=== PATIENT | male | born 1990 | race Caucasian/White ===

== ENCOUNTER 2020-11-11 02:09 | Emergency (ER) | payer OTHER, MEDICAID, SELFPAY ==
[2020-11-11] VITALS (9 sets, daily range): BP systolic 140–182; BP diastolic 98–123; PULSE 60–73; RESP 13–24; TEMP 37; O2SAT 97–100; BMI 24.4
--- NOTE | 2020-11-11 02:25 | ED_ITS ---
HPI - Chest Pain General Chief Complaint: Chest Pain Stated Complaint: anxiety panic attack Time Seen by Provider: 11/11/20 02:11 History of Present Illness HPI narrative: 30-year-old male smoker with no chronic medical problems presents with a friend and a chief complaint have some chest pressure across his chest and some tingling in his neck. He states it started about an hour ago. He denies any obvious provocation, palliation or radiation. He denies associated symptoms such as dizziness, weakness or lightheadedness. He is slightly nauseated but denies any vomiting. He has had no fever or chills and denies any injury. He states that he had been partying a bit tonight and probably had too much alcohol and then used cocaine about 1 hour prior to the onset of the symptoms. Related Data Allergies Allergy/AdvReac Type Severity Reaction Status Date / Time No Known Drug Allergies Allergy Verified 11/11/20 03:18 Review of Systems Review of Systems Narrative: GENERAL: Denies chills, fatigue, malaise, fever, sweats. HEENT: Denies sinus pain, ear pain, sore throat, difficulty swallowing, dizziness. RESPIRATORY: Denies dyspnea, cough, wheezing, hemoptysis, sputum. CARDIOVASCULAR: See HPI GASTROINTESTINAL: Denies nausea, vomiting, abdominal pain, diarrhea, constipation, melena. : Denies dysuria, frequency, incontinence, hematuria, urinary retention. MUSCULOSKELETAL: denies weakness, joint pain, or bony pain SKIN: Denies rash, skin lesions, or other NEUROLOGIC: Denies weakness, headache, numbness, change in speech, confusion, seizures, incoordination. PSYCHIATRIC: No concerning psychosocial issues. 12 point review of systems is negative except for those stated above Patient History Social History Smoking Status: Current every day smoker Exam Narrative Exam Narrative: GENERAL: [30] year old patient appears stated age. Well- developed patient, in mild distress. Anxious HEAD: Atraumatic. Normocephalic. EYES: Pupils equal round and reactive. Extraocular motions intact. No scleral icterus. No injection or drainage. ENT: Nose without bleeding, purulent drainage. Throat without erythema, tonsillar hypertrophy or exudate. Airway patent. NECK: Trachea midline. Non tender CARDIOVASCULAR: Regular rate and rhythm without murmurs, gallops, or rubs. RESPIRATORY: Clear to auscultation. Breath sounds equal bilaterally. No wheezes, rales, or rhonchi. GASTROINTESTINAL: Abdomen soft, non-tender, nondistended. EXTREMITIES: No edema or joint tenderness. BACK: Nontender without deformity or crepitance. No flank tenderness. NEURO: AOx3. SKIN: No rash or erythema of visible areas Initial Vital Signs Initial Vital Signs: Vital Signs Pulse Rate 67 11/11/20 02:29 Pulse Oximetry 100 11/11/20 02:29 Course Orders Ordered: ED Orders 11/11/20 02:25 Complete Blood Count AUTO DIFF Stat Comprehensive Metabolic Panel Stat Troponin & CK Cardiac Panel Stat 11/11/20 02:27 XR chest 1V Stat 11/11/20 03:24 Urine Drug Screen, Rapid Stat 11/11/20 03:34 EKG-12 Lead Stat Discontinued Medications Sodium Chloride (Normal Saline 0.9%) 1,000 mls @ 1,000 mls/hr IV BOLUS ONE Stop: 11/11/20 03:24 Last Infusion: 11/11/20 04:03 Dose: 0 mls/hr Documented by: Admin: 11/11/20 03:11 Dose: 1,000 mls/hr Documented by: ARNULFO Lorazepam (Lorazepam 2 Mg/Ml Inj) 0.5 mg IV NOW ONE Stop: 11/11/20 03:16 Last Admin: 11/11/20 04:04 Dose: Not Given Documented by: ARNULFO Reevaluation(s) Reevaluation #1: Patient having no pain once blood pressure improves. No longer feeling anxious, asymptomatic Vital Signs Vital signs: Vital Signs - 8 hr 11/11/20 02:29 11/11/20 02:30 11/11/20 02:31 Temperature Pulse Rate 67 66 70 Respiratory Rate 14 Blood Pressure 158/101 H Pulse Oximetry 100 100 100 11/11/20 02:39 11/11/20 03:00 11/11/20 03:25 Temperature 98.6 F Pulse Rate 73 66 66 Respiratory Rate 24 13 20 Blood Pressure 182/123 H 140/98 H 153/101 H Pulse Oximetry 99 98 97 11/11/20 03:29 11/11/20 03:30 11/11/20 04:00 Temperature Pulse Rate 64 60 61 Respiratory Rate 24 17 19 Blood Pressure 158/102 H 158/102 H Pulse Oximetry 97 98 100 MDM - Chest Pain Lab Data Result diagrams: 11/11/20 02:25 11/11/20 02:25 Labs: Lab Results 11/11/20 11/11/20 11/11/20 Range/Units 02:25 02:25 02:25 WBC 5.9 (4.5-11.0) X10^3/uL RBC 4.87 (4.5-5.9) X10^6/uL Hgb 15.1 (13.5-17.5) g/dL Hct 44.4 (41-53) % MCV 91.1 (80-100) fL MCH 31.0 (26-34) PG MCHC 34.1 (30-36) % RDW 12.5 (11.6-14.8) % Plt Count 193 (150-400) X10^3/uL Neut % (Auto) 61.4 (50-75) % Lymph % (Auto) 25.6 (25-40) % [place] % (Auto) 9.9 (3-14) % Eos % (Auto) 2.2 (2-4) % Baso % (Auto) 0.9 (0-2) % Neut # (Auto) 3600 (5864-2699) /uL Lymph # (Auto) 1500 (0061-0653) /uL [place] # (Auto) 600 (0-900) /uL Eos # (Auto) 100 (0-450) /uL Baso # (Auto) 100 (0-100) /uL Sodium 134 L (137-145) mmol/L Potassium 3.7 (3.4-5.1) mmol/L Chloride 100 (98-107) mmol/L Carbon Dioxide 28 (22-32) mmol/L BUN 9 (9-20) mg/dL Creatinine 0.85 (0.66-1.25) mg/dL Estimated GFR > 60.0 (>60) mL/min BUN/Creatinine Ratio 10.6 (6-22) Glucose 94 (70-100) mg/dL Calcium 9.3 (8.4-10.2) mg/dL Total Bilirubin 1.0 (0.2-1.3) mg/dL AST 32 (17-59) IU/L ALT 34 (<50) IU/L Alkaline Phosphatase 87 (38-126) U/L Total Creatine Kinase 90 (55-170) U/L CK-MB (CK-2) TNP CK-MB (CK-2) Rel Index TNP Troponin I < 0.012 (0.01-0.034) ng/mL Total Protein 7.1 (6.3-8.2) g/dL Albumin 4.3 (3.5-5.0) g/dL Globulin 2.8 (1.7-4.1) g/dL Albumin/Globulin Ratio 1.5 (1.0-2.8) U Opiates 300ng/mL cut (Negative) Ur Oxycodone Screen (Negative) Urine Methadone Screen (Negative) Ur Barbiturates Screen (Negative) U Tricyclic Antidepress (Negative) Ur Phencyclidine Scrn (Negative) Ur Amphetamines Screen (Negative) U Methamphetamines Scrn (Negative) Ur MDMA Scrn (Ecstasy) (Negative) U Benzodiazepines Scrn (Negative) Urine Cocaine Screen (Negative) U Marijuana (THC) Screen (Negative) 11/11/20 Range/Units 03:24 WBC (4.5-11.0) X10^3/uL RBC (4.5-5.9) X10^6/uL Hgb (13.5-17.5) g/dL Hct (41-53) % MCV (80-100) fL MCH (26-34) PG MCHC (30-36) % RDW (11.6-14.8) % Plt Count (150-400) X10^3/uL Neut % (Auto) (50-75) % Lymph % (Auto) (25-40) % [place] % (Auto) (3-14) % Eos % (Auto) (2-4) % Baso % (Auto) (0-2) % Neut # (Auto) (1518-5481) /uL Lymph # (Auto) (0784-4653) /uL [place] # (Auto) (0-900) /uL Eos # (Auto) (0-450) /uL Baso # (Auto) (0-100) /uL Sodium (137-145) mmol/L Potassium (3.4-5.1) mmol/L Chloride (98-107) mmol/L Carbon Dioxide (22-32) mmol/L BUN (9-20) mg/dL Creatinine (0.66-1.25) mg/dL Estimated GFR (>60) mL/min BUN/Creatinine Ratio (6-22) Glucose (70-100) mg/dL Calcium (8.4-10.2) mg/dL Total Bilirubin (0.2-1.3) mg/dL AST (17-59) IU/L ALT (<50) IU/L Alkaline Phosphatase (38-126) U/L Total Creatine Kinase (55-170) U/L CK-MB (CK-2) CK-MB (CK-2) Rel Index Troponin I (0.01-0.034) ng/mL Total Protein (6.3-8.2) g/dL Albumin (3.5-5.0) g/dL Globulin (1.7-4.1) g/dL Albumin/Globulin Ratio (1.0-2.8) U Opiates 300ng/mL cut Negative (Negative) Ur Oxycodone Screen Negative (Negative) Urine Methadone Screen Negative (Negative) Ur Barbiturates Screen Negative (Negative) U Tricyclic Antidepress Negative (Negative) Ur Phencyclidine Scrn Negative (Negative) Ur Amphetamines Screen Negative (Negative) U Methamphetamines Scrn Negative (Negative) Ur MDMA Scrn (Ecstasy) Negative (Negative) U Benzodiazepines Scrn Negative (Negative) Urine Cocaine Screen Positive H (Negative) U Marijuana (THC) Screen Positive H (Negative) Urine Dip Bedside Urine Glucose Negative Bedside Urine Bilirubin - Negative Bedside Urine Ketone - Negative Urine Specific [place] 1.010 Bedside Urine Occult Blood - Negative Bedside Urine pH 6 Bedside Urine Protein - Negative Bedside Urine Urobilinogen - Negative Bedside Urine Nitrite - Negative Bedside Urine Leukocytes - Negative Esterase ECG Data Interpretation: EKG is normal sinus rhythm rate [73] and free of any signs of ischemia or ectopy. No ST segmental elevation or depression. No T wave inversions MDM Narrative Medical decision making narrative: Multiple causes of chest pain considered including VA, PE, pneumothorax, pneumonia, aortic dissection, and pleurisy. Patient reports no radiation, no diaphoresis, no provocation with exertion, and no vomiting Patient's symptoms improved over duration of stay with above-stated therapies. Findings and discharge diagnosis discussed with patient/family followed by verbalization of understanding Return precautions discussed with patient/family whom verbalize understanding. Discharge Plan Departure Patient Disposition: Home Clinical Impression: Atypical chest pain Instructions: DI for Atypical Chest Pain Activity Restrictions/Additional Instructions: *You have been diagnosed with [atypical chest pain, elevated blood pressure. Physical exam, history, labs and EKG are all very reassuring] *What to do: *Please continue to take your regular medications as directed. [ ] New medication prescriptions sent to your pharmacy: [ ] [ ] New medication written as a paper prescription [x ] No new medications given *Please follow up with your primary care provider in 2-3 days, call for an appointment. Let them know you were seen in the Emergency Department and that we ask that you be seen in follow up. We will electronically transmit a record of today's note if your PCP is in our system *If you do not have a primary care provider please contact the [facility] Resource line at [phone]. They will ask some questions about your medical history and help get you set up with a doctor in the community. *Return to Emergency Department if you should have any new, worsening or concerning symptoms, such as [fever greater than 101 F, shaking chills, worsening pain, persistent vomiting or other bothersome symptoms] Referrals: [facility] [Outside]
--- NOTE | 2020-11-11 02:27 | DI.RAD.S_ITS ---
PROCEDURE: XR CHEST 1V INDICATIONS: chest pain TECHNIQUE: One view of the chest was acquired. COMPARISON: None. FINDINGS: Surgical changes and devices: None. Lungs and pleura: Lungs are clear. No pleural effusions or pneumothorax. Mediastinum: Mediastinal contours appear normal. Heart size is normal. Bones and chest wall: No suspicious bony lesions. Overlying soft tissues appear unremarkable. IMPRESSION: No acute cardiopulmonary disease process. Dictated by: Sara Cortez MD, PhD on 11/11/2020 at 8:53 Approved by: Sara Cortez MD, PhD on 11/11/2020 at 8:54
[2020-11-11 02:41] LABS: Add Manual Diff / Slide Review NO; Basophils Absolute Auto 100 /uL (0-100); Basophils Percent Auto 0.9 % (0-2); Eosinophils Absolute Auto 100 /uL (0-450); Eosinophils Percent Auto 2.2 % (2-4); Hematocrit 44.4 % (41-53); Hemoglobin 15.1 g/dL (13.5-17.5); Lymphocytes Absolute Auto 1500 /uL (1100-4500); Lymphocytes Percent Auto 25.6 % (25-40); Mean Corpuscular HGB Conc 34.1 % (30-36); Mean Corpuscular Volume 91.1 fL (80-100); Monocytes Absolute Auto 600 /uL (0-900); Monocytes Percent Auto 9.9 % (3-14); Neutrophils Absolute Auto 3600 /uL (1500-7000); Neutrophils Percent Auto 61.4 % (50-75); Platelet Count 193 X10^3/uL (150-400); Red Blood Cell Count 4.87 X10^6/uL (4.5-5.9); Red Cell Distribution Width 12.5 % (11.6-14.8); White Blood Cell Count 5.9 X10^3/uL (4.5-11.0)
[2020-11-11 02:50] LABS: Alanine Aminotransferase 34 IU/L (<50); Albumin 4.3 g/dL (3.5-5.0); Albumin Globulin Ratio 1.5 (1.0-2.8); Alkaline Phosphatase 87 U/L (38-126); Aspartate Aminotransferase 32 IU/L (17-59); BUN Creatinine Ratio 10.6 (6-22); Blood Urea Nitrogen 9 mg/dL (9-20); Calcium 9.3 mg/dL (8.4-10.2); Carbon Dioxide 28 mmol/L (22-32); Chloride 100 mmol/L (98-107); Creatine Kinase 90 U/L (55-170); Estimated Glomerular Filt Rate > 60.0 mL/min (>60); Globulin 2.8 g/dL (1.7-4.1); Glucose 94 mg/dL (70-100); HEMOLYSIS < 15 (0-50); Potassium 3.7 mmol/L (3.4-5.1); Sodium 134 mmol/L (137-145); Total Protein 7.1 g/dL (6.3-8.2)
[2020-11-11 03:02] LABS: Troponin I < 0.012 ng/mL (0.01-0.034)
[2020-11-11] MEDS: SODIUM CHLORIDE 0.9% 1,000 ML 1000 ML IV (03:11)
[2020-11-11 03:46] LABS: UR Morphine/Opiate cutoff 300 Negative (Negative); Ur Creatinine 10 (Normal); Ur Specific Gravity 1.015 (Normal); Urine Amphetamines Negative (Negative); Urine Barbiturates Negative (Negative); Urine Benzodiazepines Negative (Negative); Urine Cocaine Positive (Negative); Urine MDMA Negative (Negative); Urine Methadone Negative (Negative); Urine Methamphetamines Negative (Negative); Urine Oxycodone Negative (Negative); Urine Phencyclidine Negative (Negative); Urine Tetrahydrocannabinol Positive (Negative); Urine Tricyclic Antidepressant Negative (Negative); Urine pH 4 (Normal)
== END 2020-11-11 04:11 | disposition home or self-care (01) ==
PROVIDERS: Emergency Provider Emergency Medicine
DX: R07.89 Other chest pain (principal)
CPT/HCPCS: 36415; 71045; 80053; 80305; 81003; 82550; 84484; 85025; 93005; 93010; 96361; 96374; 99284

== ENCOUNTER 2020-11-13 13:53 | Emergency (ER) | payer OTHER, MEDICAID, SELFPAY ==
[2020-11-13] VITALS (11 sets, daily range): BP systolic 141–175; BP diastolic 86–102; PULSE 55–67; RESP 10–20; TEMP 36.6; O2SAT 98–100
--- NOTE | 2020-11-13 14:00 | DI.RAD.S_ITS ---
PROCEDURE: XR CHEST 1V INDICATIONS: chest pain TECHNIQUE: One view of the chest was acquired. COMPARISON: [facility], CR, XR CHEST 1V, 11/11/2020, 2:29. FINDINGS: Surgical changes and devices: None. Lungs and pleura: Lungs are clear. No pleural effusions or pneumothorax. Mediastinum: Mediastinal contours appear normal. Heart size is normal. Bones and chest wall: No suspicious bony lesions. Overlying soft tissues appear unremarkable. IMPRESSION: No acute cardiopulmonary disease process. Dictated by: Sara Cortez MD, PhD on 11/13/2020 at 14:26 Approved by: Sara Cortez MD, PhD on 11/13/2020 at 14:27
--- NOTE | 2020-11-13 14:33 | ED.CHESTPAIN ---
HPI - Chest Pain <Aroldo Ziegler PA-C - Last Filed: 11/13/20 19:10> General Chief Complaint: Chest Pain Stated Complaint: CHEST PAIN, HIGH BLOOD PRESSURE Time Seen by Provider: 11/13/20 14:20 Source: patient Mode of arrival: Ambulatory History of Present Illness HPI narrative: Tyrone presents today with chief complaint left-sided chest pain in addition to lightheadedness and blurred vision that occurred earlier today after he was eating lunch. He reports that he had a similar episode 2 days ago and was seen in the emergency department. At that time a normal evaluation was done and he was discharged. He has a follow-up appointment with his primary care provider for 1 week from today. Prior to this week, he has not experienced symptoms similar to this. He denies any significant worsening symptoms with exertion, shortness of breath, cough, fever, sore throat, recent illness or any other acute concerns or complaints at this time. Related Data Allergies Allergy/AdvReac Type Severity Reaction Status Date / Time No Known Drug Allergies Allergy Verified 11/11/20 03:18 Review of Systems <Aroldo Ziegler PA-C - Last Filed: 11/13/20 19:10> Review of Systems Narrative: As per HPI Patient History <Aroldo Ziegler PA-C - Last Filed: 11/13/20 19:10> Social History Smoking Status: Current every day smoker Smoking Status: Current every day smoker alcohol intake frequency: 0-2 drinks per day Substance Use Type: does not use Exam <Aroldo Ziegler PA-C - Last Filed: 11/13/20 19:10> Narrative Exam Narrative: Exam Narrative: Const General: cooperative, healthy appearing, comfortable, no acute distress, well developed and well groomed Nutritional Appearance: average body habitus Orientation: alert and oriented x3 HENMT Head: normal to inspection and atraumatic Ears: hearing grossly normal bilaterally Nose: external nose normal and nares normal Face and sinus: normal facial exam Neck Neck: normal visual inspection and supple Resp Effort & Inspection: normal respiratory effort, able to speak in complete sentences, no audible wheezes, not labored, no nasal flaring and no respiratory distress, clear to auscultation bilaterally Cardiac Regular rate and rhythm, no discernible murmurs, rubs or gallops. Chest No chest wall tenderness with palpation. Normal expansion GI Nondistended, nontender to palpation, normal bowel sounds, no masses noted. Neuro General: alert, oriented x3, gait normal, tone normal and moves all extremities Cognition: normal cognition Speech: speech normal Gait: normal gait Psych Appearance: grossly normal and well kempt Mental Status: mental status grossly normal Speech and Movement: speech and movement normal Mood: congruent mood Affect: normal affect Initial Vital Signs Initial Vital Signs: Vital Signs Temperature 97.9 F 11/13/20 13:56 Pulse Rate 66 11/13/20 13:56 Respiratory Rate 20 11/13/20 13:56 Blood Pressure 175/102 H 11/13/20 13:56 Pulse Oximetry 100 11/13/20 13:56 <James Navarro DO - Last Filed: 11/17/20 07:10> Initial Vital Signs Initial Vital Signs: Vital Signs Temperature 97.9 F 11/13/20 13:56 Pulse Rate 66 11/13/20 13:56 Respiratory Rate 20 11/13/20 13:56 Blood Pressure 175/102 H 11/13/20 13:56 Pulse Oximetry 100 11/13/20 13:56 Scores <Aroldo Ziegler PA-C - Last Filed: 11/13/20 19:10> HEART Score Heart Score history: Slightly Suspicious Heart Score EKG: Non-Specific repolarization disturbance Heart Score Age: < 45 years old Heart Score risk factors: No known risk factors Heart Score troponin: < or = to normal limit Heart Score Total: 1 PERC Score Age greater than or equal to 50 years: No Heart rate greater than or equal to 100 bpm: No Room Air O2 Sat less than 95%: No Unilateral leg swelling: No Recent trauma or surgery: No Hemoptysis: No Prior PE or DVT: No Hormone Use: No Total PERC Score: 0 <DO Isaac Galan Last Filed: 11/17/20 07:10> HEART Score Heart Score Total: 1 PERC Score Total PERC Score: 0 Course <SHELBI Hopper Last Filed: 11/13/20 19:10> Orders Ordered: Discontinued Medications Aspirin (Aspirin 81 Mg Chew Tab) 324 mg PO NOW ONE Stop: 11/13/20 14:37 Last Admin: 11/13/20 14:51 Dose: 324 mg Documented by: SIMBA Vital Signs Vital signs: Vital Signs - 8 hr 11/13/20 13:56 11/13/20 14:09 11/13/20 14:30 Temperature 97.9 F Pulse Rate 66 60 67 Respiratory Rate 20 12 14 Blood Pressure 175/102 H 161/90 H Pulse Oximetry 100 100 98 11/13/20 15:00 11/13/20 15:30 11/13/20 16:00 Temperature Pulse Rate 66 63 55 L Respiratory Rate 16 14 17 Blood Pressure 148/86 H 147/91 H 141/92 H Pulse Oximetry 99 98 98 11/13/20 16:20 11/13/20 16:30 11/13/20 17:00 Temperature Pulse Rate 55 L 57 L 60 Respiratory Rate 14 10 L 19 Blood Pressure 150/100 H 141/94 H 160/100 H Pulse Oximetry 100 98 99 11/13/20 17:30 11/13/20 18:00 Temperature Pulse Rate 57 L 58 L Respiratory Rate 18 16 Blood Pressure 157/102 H 149/94 H Pulse Oximetry 99 98 <James Navarro DO - Last Filed: 11/17/20 07:10> Orders Ordered: Discontinued Medications Aspirin (Aspirin 81 Mg Chew Tab) 324 mg PO NOW ONE Stop: 11/13/20 14:37 Last Admin: 11/13/20 14:51 Dose: 324 mg Documented by: SIMBA Vital Signs Vital signs: Vital Signs - 8 hr 11/13/20 13:56 11/13/20 14:09 11/13/20 14:30 Temperature 97.9 F Pulse Rate 66 60 67 Respiratory Rate 20 12 14 Blood Pressure 175/102 H 161/90 H Pulse Oximetry 100 100 98 11/13/20 15:00 11/13/20 15:30 11/13/20 16:00 Temperature Pulse Rate 66 63 55 L Respiratory Rate 16 14 17 Blood Pressure 148/86 H 147/91 H 141/92 H Pulse Oximetry 99 98 98 11/13/20 16:20 11/13/20 16:30 11/13/20 17:00 Temperature Pulse Rate 55 L 57 L 60 Respiratory Rate 14 10 L 19 Blood Pressure 150/100 H 141/94 H 160/100 H Pulse Oximetry 100 98 99 11/13/20 17:30 11/13/20 18:00 Temperature Pulse Rate 57 L 58 L Respiratory Rate 18 16 Blood Pressure 157/102 H 149/94 H Pulse Oximetry 99 98 MDM - Chest Pain <Aroldo Ziegler PA-C - Last Filed: 11/13/20 19:10> Lab Data Result diagrams: 11/13/20 14:40 11/13/20 14:40 Labs: Lab Results 11/13/20 11/13/20 11/13/20 Range/Units 14:40 14:40 17:10 WBC 4.9 (4.5-11.0) X10^3/uL RBC 5.15 (4.5-5.9) X10^6/uL Hgb 16.2 (13.5-17.5) g/dL Hct 46.9 (41-53) % MCV 91.0 (80-100) fL MCH 31.5 (26-34) PG MCHC 34.6 (30-36) % RDW 12.9 (11.6-14.8) % Plt Count 180 (150-400) X10^3/uL Neut % (Auto) 54.7 (50-75) % Lymph % (Auto) 28.9 (25-40) % [place] % (Auto) 11.7 (3-14) % Eos % (Auto) 3.8 (2-4) % Baso % (Auto) 0.9 (0-2) % Neut # (Auto) 2700 (1886-7416) /uL Lymph # (Auto) 1400 (8157-7115) /uL [place] # (Auto) 600 (0-900) /uL Eos # (Auto) 200 (0-450) /uL Baso # (Auto) 0 (0-100) /uL Sodium 138 (137-145) mmol/L Potassium 4.2 (3.4-5.1) mmol/L Chloride 105 (98-107) mmol/L Carbon Dioxide 27 (22-32) mmol/L BUN 9 (9-20) mg/dL Creatinine 0.79 (0.66-1.25) mg/dL Estimated GFR > 60.0 (>60) mL/min BUN/Creatinine Ratio 11.4 (6-22) Glucose 92 (70-100) mg/dL Calcium 9.6 (8.4-10.2) mg/dL Total Bilirubin 0.7 (0.2-1.3) mg/dL AST 38 (17-59) IU/L ALT 43 (<50) IU/L Alkaline Phosphatase 70 (38-126) U/L Total Creatine Kinase 48 L (55-170) U/L CK-MB (CK-2) TNP CK-MB (CK-2) Rel Index TNP Troponin I < 0.012 < 0.012 (0.01-0.034) ng/mL Total Protein 7.1 (6.3-8.2) g/dL Albumin 4.4 (3.5-5.0) g/dL Globulin 2.7 (1.7-4.1) g/dL Albumin/Globulin Ratio 1.6 (1.0-2.8) Lipase 162 (23-300) U/L MDM Narrative Medical decision making narrative: Patient is well-appearing at this time. He is otherwise healthy and does not have any significant contributory past medical problems. Heart score is 1 given his nonspecific T-wave abnormalities in the inferior leads. PERC was applied and he sored 0 suggesting low likelihood of PE. He has a follow-up appointment with his primary care provider this next week. ER return precautions were discussed with the patient. Patient verbalizes understanding and agrees to plan and has no further concerns at this time. Thank you A [id number] system was used with the dictation of this note. Please disregard any spelling or grammatical errors. <James Navarro, DO - Last Filed: 11/17/20 07:10> Lab Data Labs: Lab Results 11/13/20 11/13/20 11/13/20 Range/Units 14:40 14:40 17:10 WBC 4.9 (4.5-11.0) X10^3/uL RBC 5.15 (4.5-5.9) X10^6/uL Hgb 16.2 (13.5-17.5) g/dL Hct 46.9 (41-53) % MCV 91.0 (80-100) fL MCH 31.5 (26-34) PG MCHC 34.6 (30-36) % RDW 12.9 (11.6-14.8) % Plt Count 180 (150-400) X10^3/uL Neut % (Auto) 54.7 (50-75) % Lymph % (Auto) 28.9 (25-40) % [place] % (Auto) 11.7 (3-14) % Eos % (Auto) 3.8 (2-4) % Baso % (Auto) 0.9 (0-2) % Neut # (Auto) 2700 (7681-1215) /uL Lymph # (Auto) 1400 (4097-0624) /uL [place] # (Auto) 600 (0-900) /uL Eos # (Auto) 200 (0-450) /uL Baso # (Auto) 0 (0-100) /uL Sodium 138 (137-145) mmol/L Potassium 4.2 (3.4-5.1) mmol/L Chloride 105 (98-107) mmol/L Carbon Dioxide 27 (22-32) mmol/L BUN 9 (9-20) mg/dL Creatinine 0.79 (0.66-1.25) mg/dL Estimated GFR > 60.0 (>60) mL/min BUN/Creatinine Ratio 11.4 (6-22) Glucose 92 (70-100) mg/dL Calcium 9.6 (8.4-10.2) mg/dL Total Bilirubin 0.7 (0.2-1.3) mg/dL AST 38 (17-59) IU/L ALT 43 (<50) IU/L Alkaline Phosphatase 70 (38-126) U/L Total Creatine Kinase 48 L (55-170) U/L CK-MB (CK-2) TNP CK-MB (CK-2) Rel Index TNP Troponin I < 0.012 < 0.012 (0.01-0.034) ng/mL Total Protein 7.1 (6.3-8.2) g/dL Albumin 4.4 (3.5-5.0) g/dL Globulin 2.7 (1.7-4.1) g/dL Albumin/Globulin Ratio 1.6 (1.0-2.8) Lipase 162 (23-300) U/L Discharge Plan Departure Patient Disposition: Home Clinical Impression: Chest pain Qualifiers: Chest pain type: unspecified Qualified Code(s): R07.9 - Chest pain, unspecified Instructions: DI for Chest Pain Activity Restrictions/Additional Instructions: It was very nice to meet you this afternoon. Your evaluation today has been reassuring. However, chest pain is a serious concern. Please follow-up with your primary care provider at your next appointment on for further outpatient evaluation. You experience significant worsening symptoms, difficulty breathing, fever, cough, rash or have any additional concerns or complaints do not hesitate to return for re-evaluation. Thank you Aroldo Ziegler PA-C <James Navarro, DO - Last Filed: 11/17/20 07:10> [facility] ED Attending Cosignature Attestation: Dr Navarro Co-Sign Statement: I was available for consultation during this patient's emergency department visit. This chart is signed by myself for administrative purposes only. I did not have direct contact with this patient during this visit. They were seen independently by the APC.
[2020-11-13 14:44] LABS: Add Manual Diff / Slide Review NO; Basophils Absolute Auto 0 /uL (0-100); Basophils Percent Auto 0.9 % (0-2); Eosinophils Absolute Auto 200 /uL (0-450); Eosinophils Percent Auto 3.8 % (2-4); Hematocrit 46.9 % (41-53); Hemoglobin 16.2 g/dL (13.5-17.5); Lymphocytes Absolute Auto 1400 /uL (1100-4500); Lymphocytes Percent Auto 28.9 % (25-40); Mean Corpuscular HGB Conc 34.6 % (30-36); Mean Corpuscular Hemoglobin 31.5 PG (26-34); Monocytes Absolute Auto 600 /uL (0-900); Monocytes Percent Auto 11.7 % (3-14); Neutrophils Absolute Auto 2700 /uL (1500-7000); Neutrophils Percent Auto 54.7 % (50-75); Platelet Count 180 X10^3/uL (150-400); Red Blood Cell Count 5.15 X10^6/uL (4.5-5.9); Red Cell Distribution Width 12.9 % (11.6-14.8); White Blood Cell Count 4.9 X10^3/uL (4.5-11.0)
[2020-11-13] MEDS: ASPIRIN 81 MG CHEW TAB 324 MG PO (14:51)
[2020-11-13 15:09] LABS: Alanine Aminotransferase 43 IU/L (<50); Albumin 4.4 g/dL (3.5-5.0); Albumin Globulin Ratio 1.6 (1.0-2.8); Alkaline Phosphatase 70 U/L (38-126); Aspartate Aminotransferase 38 IU/L (17-59); BUN Creatinine Ratio 11.4 (6-22); Bilirubin Total 0.7 mg/dL (0.2-1.3); Blood Urea Nitrogen 9 mg/dL (9-20); Calcium 9.6 mg/dL (8.4-10.2); Carbon Dioxide 27 mmol/L (22-32); Chloride 105 mmol/L (98-107); Creatine Kinase 48 U/L (55-170); Estimated Glomerular Filt Rate > 60.0 mL/min (>60); Globulin 2.7 g/dL (1.7-4.1); Glucose 92 mg/dL (70-100); HEMOLYSIS 19 (0-50); Lipase 162 U/L (23-300); Potassium 4.2 mmol/L (3.4-5.1); Sodium 138 mmol/L (137-145); Total Protein 7.1 g/dL (6.3-8.2)
[2020-11-13 15:21] LABS: Troponin I < 0.012 ng/mL (0.01-0.034)
[2020-11-13 17:39] LABS: Troponin I < 0.012 ng/mL (0.01-0.034)
== END 2020-11-13 18:23 | disposition home or self-care (01) ==
PROVIDERS: Emergency Medicine; Emergency Provider Physician Assistant
DX: R07.9 Chest pain, unspecified (principal); R42 Dizziness and giddiness; H53.8 Other visual disturbances
CPT/HCPCS: 36415; 71045; 80053; 82550; 83690; 84484; 85025; 93005; 93010; 99284